=== PATIENT | male | born 1985 | race Caucasian/White ===

== ENCOUNTER 2017-03-12 06:25 | Emergency (ER) | payer MEDICAID ==
[2017-03-12] MEDS ORDERED: ASPIRIN 81 MG TABLET, CHEWABLE PO ONE (07:15)
--- NOTE | 2017-03-12 07:16 | ER Document Report ---
ED General - General Chief Complaint: Jaw Pain Stated Complaint: SWOLLEN AND PAINFUL JAW Mode of Arrival: Ambulatory Information source: Patient Notes: Patient presents complaining of left lower jaw pain due to a broken tooth caused by an incoming molar. Patient states the pain has been making him anxious which in turn caused him to develop some chest pain this morning at 5 AM that lasted for 1 hour and is now resolved. Patient denies any nausea or vomiting. Patient reports mild cough that he attributes to his chronic cough due to smoking. Patient denies any drug use or family history or personal history of heart disease. TRAVEL OUTSIDE OF THE [place] IN LAST 30 DAYS: No - HPI Onset: Other - Dental pain since yesterday, chest pain episode this morning at 5 AM Onset/Duration: Persistent - Dental pain Quality of pain: Achy Pain Level: 4 Associated symptoms: Chest pain, Nonproductive cough. denies: Productive cough , Diarrhea, Fever, Nausea, Vomiting, Sore throat Exacerbated by: Denies Relieved by: Denies Similar symptoms previously: Yes Recently seen / treated by doctor: No - Related Data Allergies/Adverse Reactions: No Known Allergies Allergy (Verified 05/04/15 21:03) Past Medical History - General Information source: Patient - Social History Smoking Status: Current Every Day Smoker Frequency of alcohol use: None Drug Abuse: None Occupation: music Family History: Reviewed & Not Pertinent. denies: CAD Patient has suicidal ideation: No Patient has homicidal ideation: No - Past Medical History Cardiac Medical History: Denies: Hx Heart Attack, Hx Hypertension Renal/ Medical History: Denies: Hx Peritoneal Dialysis GI Medical History: Reports: Hx Gastroesophageal Reflux Disease Psychiatric Medical History: Reports: Hx Bipolar Disorder Surgical Hx: Negative - Immunizations Hx Diphtheria, Pertussis, Tetanus Vaccination: No Review of Systems - Review of Systems Constitutional: No symptoms reported. denies: Fever, Recent illness EENT: Other - Dental pain Cardiovascular: Chest pain - 1 hour episode of chest pain that started at 5 AM. denies: Palpitations Respiratory: Cough. denies: Short of breath Gastrointestinal: No symptoms reported. denies: Abdominal pain, Diarrhea, Nausea, Vomiting Genitourinary: No symptoms reported Male Genitourinary: No symptoms reported Musculoskeletal: No symptoms reported. denies: Back pain Skin: No symptoms reported Hematologic/Lymphatic: No symptoms reported Neurological/Psychological: Anxiety Physical Exam - Vital signs Vitals: Temp Pulse Resp BP Pulse Ox 97.6 F 98 19 152/92 H 99 03/12/17 06:37 03/12/17 06:37 03/12/17 06:37 03/12/17 06:37 03/12/17 06:37 - General General appearance: Appears well, Alert In distress: None Notes: PHYSICAL EXAMINATION: GENERAL: Well-appearing and in no acute distress. HEAD: Atraumatic, normocephalic. EYES: sclera anicteric, conjunctiva are normal. ENT: nares patent. Moist mucous membranes. NECK: Normal range of motion, supple without lymphadenopathy LUNGS: CTAB and equal. No wheezes rales or rhonchi. Chest nontender to palpation HEART: Regular rate and rhythm without murmurs ABDOMEN: Soft, nontender, normal bowel sounds, no guarding. EXTREMITIES: Normal range of motion, no pitting edema. No cyanosis. BACK: No CVA tenderness NEUROLOGICAL: Cranial nerves grossly intact. Normal speech. Normal gait. PSYCH: Normal mood, normal affect. SKIN: Warm, Dry, normal turgor, no rashes or lesions noted Course - Re-evaluation Re-evalutation: 03/12/17 09:17 Patient continues to deny any chest pain symptoms this time. Consulted with Dr. Underwood regarding patient presentation and diagnostic evaluation. No additional testing advised this time. 03/12/17 09:19 The patient has atypical chest pain as the patient's chest pain is not suggestive of pulmonary embolus, cardiac ischemia, aortic dissection, or other serious etiology. Given the extremely low risk of these diagnoses for the test in evaluation for these possibilities does not appear to be indicated at this time. Patient has been instructed to return if the symptoms worsen or change in any way. Patient with heart score of 1. Pt PERC negative - Vital Signs Vital signs: Temp Pulse Resp BP Pulse Ox 97.6 F 84 16 146/98 H 99 03/12/17 09:24 03/12/17 09:24 03/12/17 09:24 03/12/17 09:24 03/12/17 09:24 - Laboratory Result Diagrams: 03/12/17 07:29 03/12/17 07:29 Laboratory results interpreted by me: 03/12/17 03/12/17 07:29 07:29 WBC 10.8 H Chloride 108 H - Diagnostic Test Radiology reviewed: Reports reviewed - EKG Interpretation by Me EKG shows normal: Sinus rhythm Rate: Normal When compared to previous EKG there are: No significant change Discharge - Discharge Clinical Impression: Toothache, Elevated blood pressure reading Chest pain Qualifiers: Chest pain type: unspecified Qualified Code(s): R07.9 - Chest pain, unspecified Condition: Stable Disposition: HOME, SELF-CARE Instructions: Toothache (OM), Penicillin V K (OM), Chest Pain of Unclear Cause (OM) Additional Instructions: Return immediately for any new or worsening symptoms Followup with your primary care provider, call tomorrow to make a followup appointment. Your blood pressure was elevated today, a primary doctor can recheck this in 1-2 days Follow up with a emergency response officer for an outpatient for further evaluation Follow-up with your dental care provider as planned Prescriptions: Naproxen [Naprosyn 250 Nmg Tablet] 1 tab PO BID #14 tablet Penicillin V Potassium [Penicillin Vk 500 mg Tablet] 500 mg PO BID #20 tablet Forms: Elevated Blood Pressure Referrals: [facility] [Provider Group] - Follow up as needed CATARINA PIERSON MD [ACTIVE STAFF] - Follow up in 3-5 days [facility] [Provider Group] - Follow up tomorrow
[2017-03-12 07:43] LABS: ABSOLUTE BASOPHILS # (AUTO) 0.1 10^3/uL (0.0-0.2); ABSOLUTE EOSINOPHILS # (AUTO) 0.3 10^3/uL (0.0-0.6); ABSOLUTE LYMPHOCYTES (AUTO) 3.1 10^3/uL (0.5-4.7); ABSOLUTE MONOCYTES (AUTO) 0.8 10^3/uL (0.1-1.4); ABSOLUTE NEUT (AUTO) 6.5 10^3/uL (1.7-8.2); BASOPHILS % (AUTO) 0.7 % (0-2); HEMATOCRIT 44.9 % (37.9-51.0); HEMOGLOBIN 15.8 g/dL (13.5-17.0); HGB HCT DIFFERENCE 2.5; LYMPHOCYTES % (AUTO) 28.6 % (13-45); MEAN CORPUSCULAR HEMOGLOBIN 30.3 pg (27.0-33.4); MEAN CORPUSCULAR HGB CONC 35.1 g/dL (32.0-36.0); MEAN CORPUSCULAR VOLUME 87 fl (80-97); MONOCYTES % (AUTO) 7.2 % (3-13); RED BLOOD COUNT 5.19 10^6/uL (4.35-5.55); RED CELL DISTRIBUTION WIDTH 12.7 % (11.5-14.0); SEGMENTED NEUTROPHILS % (AUTO) 60.5 % (42-78); WHITE BLOOD COUNT 10.8 10^3/uL (4.0-10.5)
[2017-03-12 07:56] LABS: ALANINE AMINOTRANSFERASE 49 U/L (21-72); ALBUMIN 4.3 g/dL (3.5-5.0); ALKALINE PHOSPHATASE 92 U/L (38-126); ANION GAP 13 (5-19); ASPARTATE AMINO TRANSFERASE 25 U/L (17-59); BILIRUBIN,DIRECT 0.3 mg/dL (0.0-0.4); BILIRUBIN,TOTAL 0.6 mg/dL (0.2-1.3); BLOOD UREA NITROGEN 14 mg/dL (7-20); CALCIUM 9.5 mg/dL (8.4-10.2); CARBON DIOXIDE 23 mmol/L (22-30); CHLORIDE 108 mmol/L (98-107); CREATINE KINASE 96 U/L (55-170); CREATININE RESULT 0.66 mg/dL (0.52-1.25); GLUCOSE 105 mg/dL (75-110); LIPASE 74.5 U/L (23-300); POTASSIUM 4.1 mmol/L (3.6-5.0); SODIUM 143.6 mmol/L (137-145)
[2017-03-12 08:08] LABS: CREATINE KINASE MB 0.41 ng/mL (<4.55)
[2017-03-12 08:17] LABS: TROPONIN I < 0.012 ng/mL
--- NOTE | 2017-03-12 09:06 | EKG REPORT ---
SEVERITY:- NORMAL ECG - SINUS RHYTHM : Confirmed by: Miller Mosqueda MD 12-Mar-2017 09:05:47
[2017-03-12 09:27] VITALS: BP 146/98
== END 2017-03-12 09:27 | disposition home or self-care (01) ==
LOC: ER 06:25
DX: K00.6 Disturbances in tooth eruption (principal); F41.9 Anxiety disorder, unspecified; R07.89 Other chest pain; R03.0 Elevated blood-pressure reading, without diagnosis of hypertension; J41.0 Simple chronic bronchitis; F17.200 Nicotine dependence, unspecified, uncomplicated
CPT/HCPCS: 36415; 71020; 80053; 82550; 82553; 83690; 84484; 85025; 93005; 93010; 99285

== ENCOUNTER 2017-05-14 01:24 | Emergency (ER) | payer MEDICAID ==
[2017-05-14 01:32] VITALS: BP 161/96
--- NOTE | 2017-05-14 12:58 | EKG REPORT ---
SEVERITY:- OTHERWISE NORMAL ECG - SINUS TACHYCARDIA : Confirmed by: Alem Lynn MD 14-May-2017 12:55:58
== END 2017-05-14 04:28 | disposition left against medical advice (07) ==
LOC: ER 01:24
DX: Z53.21 Procedure and treatment not carried out due to patient leaving prior to being seen by health care provider (principal)
CPT/HCPCS: 93005; 93010

== ENCOUNTER 2017-10-25 21:20 | Emergency (ER) | payer MEDICAID ==
[2017-10-25] MEDS ORDERED: NORMAL SALINE 1000 ML 1,000 ML IV PRN (22:38)
--- NOTE | 2017-10-25 23:10 | RADIOLOGY REPORT (SQ) ---
EXAM DESCRIPTION: CHEST SINGLE VIEW COMPLETED DATE/TIME: 10/25/2017 10:45 pm REASON FOR STUDY: er 19, palpiations COMPARISON: 03/12/2017 EXAM PARAMETERS: NUMBER OF VIEWS: One view. TECHNIQUE: Single frontal radiographic view of the chest acquired. RADIATION DOSE: NA LIMITATIONS: None. FINDINGS: LUNGS AND PLEURA: No opacities, masses or pneumothorax. No pleural effusion. MEDIASTINUM AND HILAR STRUCTURES: No masses. Contour normal. HEART AND VASCULAR STRUCTURES: Heart normal in size. Normal vasculature. BONES: No acute findings. HARDWARE: None in the chest. OTHER: No other significant finding. IMPRESSION: NO ACUTE RADIOGRAPHIC FINDING IN THE CHEST. TECHNICAL DOCUMENTATION: JOB ID: [id number] [place]-72 2010 [employer] [place]- All Rights Reserved
[2017-10-25 23:22] LABS: APPEARANCE,URINE CLEAR; BILIRUBIN,URINE NEGATIVE (NEGATIVE); GLUCOSE, URINE NEGATIVE (NEGATIVE); KETONES,URINE NEGATIVE (NEGATIVE); LEUKOCYTE ESTERASE,URINE NEGATIVE (NEGATIVE); NITRITE,URINE NEGATIVE (NEGATIVE); PROTEIN,URINE NEGATIVE (NEGATIVE); URINE SPECIFIC GRAVITY 1.003; UROBILINOGEN,URINE NEGATIVE mg/dL (<2.0)
[2017-10-25 23:39] LABS: ALANINE AMINOTRANSFERASE 66 U/L (21-72); ALBUMIN 5.3 g/dL (3.5-5.0); ALKALINE PHOSPHATASE 119 U/L (38-126); ANION GAP 16 (5-19); ASPARTATE AMINO TRANSFERASE 29 U/L (17-59); BILIRUBIN,DIRECT 0.5 mg/dL (0.0-0.4); BILIRUBIN,TOTAL 0.5 mg/dL (0.2-1.3); BLOOD UREA NITROGEN 7 mg/dL (7-20); CALCIUM 10.1 mg/dL (8.4-10.2); CARBON DIOXIDE 29 mmol/L (22-30); CHLORIDE 100 mmol/L (98-107); CREATINE KINASE 123 U/L (55-170); CREATININE RESULT 0.71 mg/dL (0.52-1.25); GLUCOSE 94 mg/dL (75-110); POTASSIUM 4.3 mmol/L (3.6-5.0); SODIUM 144.7 mmol/L (137-145); TOTAL PROTEIN 8.5 g/dL (6.3-8.2)
[2017-10-25 23:46] LABS: ABSOLUTE BASOPHILS # (AUTO) 0.1 10^3/uL (0.0-0.2); ABSOLUTE EOSINOPHILS # (AUTO) 0.2 10^3/uL (0.0-0.6); ABSOLUTE MONOCYTES (AUTO) 0.6 10^3/uL (0.1-1.4); ABSOLUTE NEUT (AUTO) 7.5 10^3/uL (1.7-8.2); BASOPHILS % (AUTO) 0.6 % (0-2); EOSINOPHILS % (AUTO) 1.7 % (0-6); HEMATOCRIT 51.3 % (37.9-51.0); HEMOGLOBIN 17.8 g/dL (13.5-17.0); HGB HCT DIFFERENCE 2.1; LYMPHOCYTES % (AUTO) 26.5 % (13-45); MEAN CORPUSCULAR HGB CONC 34.8 g/dL (32.0-36.0); MEAN CORPUSCULAR VOLUME 86 fl (80-97); MONOCYTES % (AUTO) 5.5 % (3-13); RED BLOOD COUNT 5.94 10^6/uL (4.35-5.55); RED CELL DISTRIBUTION WIDTH 12.8 % (11.5-14.0); SEGMENTED NEUTROPHILS % (AUTO) 65.7 % (42-78); WHITE BLOOD COUNT 11.4 10^3/uL (4.0-10.5)
--- NOTE | 2017-10-26 00:07 | ER Document Report ---
ED General - General Chief Complaint: Palpitations Stated Complaint: HEART RACING Time Seen by Provider: 10/25/17 23:12 Notes: Patient is a 31-year-old male without past medical history, current every day tobacco abuser who presents with an episode of palpitations that started just prior to arrival. Patient states that he was out in his garage smoking a cigarette when he began to cough on the smell the cigarette smoke. States that he went inside because he could feel his heart racing quickly and when he checked the number it was stating that his heart rate was at 130. Patient states that this did trigger him to have a panic attack in which he began to hyperventilate, became diaphoretic, and felt extremely anxious. He does have a history of having a panic attack in the past and states this felt very similar. He states he got into his car and drove here to the emergency department. Patient does note that his symptoms have now resolved particularly after IV fluids were initiated. He denies any history of DVT or pulmonary embolus. No cardiac history. He denies any chest pain or shortness of breath during today' s episode. TRAVEL OUTSIDE OF THE [place] IN LAST 30 DAYS: No - Related Data Allergies/Adverse Reactions: No Known Allergies Allergy (Verified 05/04/15 21:03) Home Medications: Current Home Medications No Home Medications 10/25/17 [History] Past Medical History - General Information source: Patient - Social History Smoking Status: Current Every Day Smoker Frequency of alcohol use: Social Drug Abuse: None Lives with: Spouse/Significant other Family History: Reviewed & Not Pertinent. denies: CAD Patient has suicidal ideation: No Patient has homicidal ideation: No - Past Medical History Cardiac Medical History: Denies: Hx Heart Attack, Hx Hypertension Renal/ Medical History: Denies: Hx Peritoneal Dialysis GI Medical History: Reports: Hx Gastroesophageal Reflux Disease Psychiatric Medical History: Reports: Hx Bipolar Disorder - Immunizations Hx Diphtheria, Pertussis, Tetanus Vaccination: No Review of Systems - Review of Systems Notes: Constitutional: Negative for fever. HENT: Negative for sore throat. Eyes: Negative for visual changes. Cardiovascular: Negative for chest pain. Positive for palpitations Respiratory: Negative for shortness of breath. Gastrointestinal: Negative for abdominal pain, vomiting or diarrhea. Genitourinary: Negative for dysuria. Musculoskeletal: Negative for back pain. Skin: Negative for rash. Neurological: Negative for headaches, weakness or numbness. 10 point ROS negative except as marked above and in HPI. Physical Exam - Vital signs Vitals: Temp Pulse Resp BP Pulse Ox 97.9 F 132 H 20 177/99 H 99 10/25/17 21:24 10/25/17 21:24 10/25/17 21:24 10/25/17 21:24 10/25/17 21:24 Interpretation: Tachycardic Notes: PHYSICAL EXAMINATION: GENERAL: Well-appearing, well-nourished and in no acute distress. HEAD: Atraumatic, normocephalic. EYES: Pupils equal round and reactive to light, extraocular movements intact, sclera anicteric, conjunctiva are normal. ENT: nares patent, oropharynx clear without exudates. Moderately dry mucous membranes. NECK: Normal range of motion, supple without lymphadenopathy LUNGS: Breath sounds clear to auscultation bilaterally and equal. No wheezes rales or rhonchi. HEART: Regular rate and rhythm without murmurs ABDOMEN: Soft, nontender, normoactive bowel sounds. No guarding, no rebound. No masses appreciated. EXTREMITIES: Normal range of motion, no pitting or edema. No cyanosis. NEUROLOGICAL: No focal neurological deficits. Moves all extremities spontaneously and on command. PSYCH: Normal mood, normal affect. SKIN: Warm, Dry, normal turgor, no rashes or lesions noted. Course - Re-evaluation Re-evalutation: 10/26/17 00:04 Patient presents with palpitations but is in no acute distress. Patient did have a pronounced tachycardia at time of arrival which is improved with IV fluids. EKG unremarkable with a sinus tachycardia. Laboratories are unremarkable. Patient denies any chest pain, shortness of breath, or vomiting. At this time based on exam and history do not suspect a new onset arrhythmia, ACS, acute pulmonary embolus, aortic dissection. Patient does admit to feeling as though he had a panic attack at home and does admit to very minimal fluid intake today throughout the day. He notes he feels completely improved at this time. He denies any shortness of breath, pleuritic pain, or any symptoms that would suggest an acute pulmonary embolus. At time of my assessment his heart rate has trended down to 92. Labs were initiated in triage including cardiac markers but I do not believe cardiac markers were indicated given patient's clinical history. Chest x-ray obtained and is noted to be clear. At this time will discharge with return precautions and follow-up recommendations. Verbal discharge instructions given a the bedside and opportunity for questions given. Medication warnings reviewed. Patient is in agreement with this plan and has verbalized understanding of return precautions and the need for primary care follow-up in the next 24-72 hours. - Vital Signs Vital signs: Temp Pulse Resp BP Pulse Ox 97.9 F 132 H 17 144/86 H 100 10/25/17 21:24 10/25/17 21:24 10/26/17 00:00 10/26/17 00:58 10/26/17 00:58 - Laboratory Result Diagrams: 10/25/17 23:07 10/25/17 23:07 Laboratory results interpreted by me: 10/25/17 10/25/17 23:07 23:07 WBC 11.4 H RBC 5.94 H Hgb 17.8 H Hct 51.3 H Direct Bilirubin 0.5 H Total Protein 8.5 H Albumin 5.3 H - Diagnostic Test Radiology reviewed: Image reviewed, Reports reviewed Radiology results interpreted by me: 10/26/17 00:05 Chest x-ray: No acute infiltrate or pneumothorax - EKG Interpretation by Me Additional EKG results interpreted by me: 10/26/17 00:06 Sinus tachycardia. Rate 117. No ST elevations or depressions. QTC is 447. Discharge - Discharge Clinical Impression: Palpitations, Dehydration, Panic attack Condition: Good Disposition: HOME, SELF-CARE Additional Instructions: You were seen today for a fast heart rate likely a combination of dehydration and a panic attack. Return if you develop chest pain, shortness of breath, pass out, or have any other symptoms that are worrisome to you.
[2017-10-26 01:01] VITALS: BP 144/86
--- NOTE | 2017-10-26 07:50 | EKG REPORT ---
SEVERITY:- BORDERLINE ECG - SINUS TACHYCARDIA BORDERLINE INFERIOR Q WAVES : Confirmed by: Miller Mosqueda MD 26-Oct-2017 07:49:54
== END 2017-10-26 01:01 | disposition home or self-care (01) ==
LOC: ER 21:20
DX: F41.0 Panic disorder [episodic paroxysmal anxiety] (principal); R00.2 Palpitations; E86.0 Dehydration; R00.0 Tachycardia, unspecified; F17.210 Nicotine dependence, cigarettes, uncomplicated
CPT/HCPCS: 93005; 99285; 36415; 82553; 82550; 85025; 80053; 81001; 84484; 71010; 93010; J7030

== ENCOUNTER 2018-06-28 21:41 | Emergency (ER) | payer MEDICAID ==
[2018-06-28] MEDS ORDERED: ASPIRIN 81 MG TABLET, CHEWABLE PO ONE (21:57)
[2018-06-28] MEDS ORDERED: NORMAL SALINE 1000 ML 1,000 ML IV ONE ×2 (21:57→23:41)
[2018-06-28] MEDS ORDERED: ADENOSINE INJ/PF 6 MG/2 ML SDV IV ONE ×3 (22:00→22:13)
--- NOTE | 2018-06-28 22:01 | ER Document Report ---
ED Cardiac - General Information source: Patient TRAVEL OUTSIDE OF THE [place] IN LAST 30 DAYS: No <CALLIE FREEMAN - Last Filed: 06/28/18 22:51> <MARILEE HUYNH - Last Filed: 06/29/18 02:38> - General Chief Complaint: Palpitations Stated Complaint: HEART RACING,CHEST PAIN Time Seen by Provider: 06/28/18 21:54 Notes: 32 y.o male presents to the ED with heart palpitations of onset around 45 minutes ago. Pt reports that he has had his heart racing once before but that it was not this bad. Pt reports that he was recently diagnosed with HTN but denies starting his medications yet. He denies any other known medical issues. (CALLIE FREEMAN) - Related Data Allergies/Adverse Reactions: No Known Allergies Allergy (Verified 05/04/15 21:03) Past Medical History - General Information source: Patient - Social History Smoking Status: Current Every Day Smoker Smoking Education Provided: Yes Drug Abuse: None Family History: Reviewed & Not Pertinent - Past Medical History Cardiac Medical History: Reports: Hx Hypertension Renal/ Medical History: Denies: Hx Peritoneal Dialysis GI Medical History: Reports: Hx Gastroesophageal Reflux Disease Psychiatric Medical History: Reports: Hx Bipolar Disorder - Immunizations Hx Diphtheria, Pertussis, Tetanus Vaccination: No <CALLIE FREEMAN - Last Filed: 06/28/18 22:51> Review of Systems - Review of Systems Constitutional: No symptoms reported EENT: No symptoms reported Cardiovascular: See HPI, Palpitations Respiratory: No symptoms reported Gastrointestinal: No symptoms reported Genitourinary: No symptoms reported Male Genitourinary: No symptoms reported Musculoskeletal: No symptoms reported Skin: No symptoms reported Hematologic/Lymphatic: No symptoms reported Neurological/Psychological: No symptoms reported -: Yes All other systems reviewed and negative <CALLIE FREEMAN - Last Filed: 06/28/18 22:51> Physical Exam <CALLIE FREEMAN - Last Filed: 06/28/18 22:51> <MARILEE HUYNH - Last Filed: 06/29/18 02:38> - Notes Notes: Physical Exam: General: Alert, anxious. HEENT: Normocephalic. Atraumatic. PERRL. Extraocular movements intact. Oropharynx clear. Dry mucus membranes. Neck: Supple. Non-tender. Respiratory: No respiratory distress. Clear and equal breath sounds bilaterally. Cardiovascular: Tachycardic rate and regular rhythm. Abdominal: Normal Inspection. Non-tender. No distension. Normal Bowel Sounds. Back: Non-tender. No deformity or step off. Extremities: Moves all four extremities. Upper extremities: Normal inspection. Normal ROM. Lower extremities: Normal inspection. No edema. Normal ROM. Neurological: Normal cognition. AAOx3. Normal speech. Psychological: anxious. Skin: Warm. Dry. Normal color. (CALLIE FREEMAN) Course <CALLIE FREEMAN - Last Filed: 06/28/18 22:51> - Laboratory Result Diagrams: 06/28/18 22:35 06/28/18 22:35 <MARILEE HUYNH - Last Filed: 06/29/18 02:38> - Re-evaluation Re-evalutation: 06/29/18 02:37 Patient is a 32-year-old male who comes in with tachycardia and ultimately SVT. Patient was given 6 mg of adenosine which did not work at all. 12 mg of adenosine slowed his heart rate down briefly. Patient was given a dose of Cardizem as well as fluids. Patient informs me that he drinks 12 Mountain Dew today. He has been told to stop that. Patient also smokes which he states he is quitting tonight after this experience. Patient has not required any further intervention after 15 mg of Cardizem. He does not want to be on medications at home. He is strongly encouraged to follow-up with a primary care doctor and return if he has any return or worsening of his symptoms. Patient was mildly hypokalemic and that has been replaced. Repeat EKG showing a sinus rhythm at 79. Stable for discharge. Understands agrees this plan. (MARILEE HUYNH) - Laboratory Laboratory results interpreted by me: 06/28/18 06/28/18 22:35 22:35 WBC 15.1 H Absolute Neutrophils 8.3 H Absolute Lymphocytes 5.5 H Potassium 3.4 L Glucose 125 H Critical Care Note - Critical Care Note Total time excluding time spent on procedures (mins): 60 - Evaluation and management of tachycardia, SVT, multiple re-evaluations, counseling of patient and family <MARILEE HUYNH - Last Filed: 06/29/18 02:38> Discharge <CALLIE FREEMAN - Last Filed: 06/28/18 22:51> <MARILEE HUYNH - Last Filed: 06/29/18 02:38> - Discharge Clinical Impression: SVT (supraventricular tachycardia), Hypokalemia, Dehydration Condition: Stable Disposition: HOME, SELF-CARE Instructions: Family Physicians / Practices, Hypokalemia ([facility]), Paroxysmal Supraventricular Tachycardia ([facility]) Additional Instructions: Please decrease your caffeine intake and please try to stay hydrated with non- caffeinated beverages. Scribe Attestation: 06/29/18 02:38 I personally performed the services described in the documentation, reviewed and edited the documentation which was dictated to the scribe in my presence, and it accurately records my words and actions. (MARILEE HUYNH) Scribe Documentation - Scribe Written by Stiven:: Stiven Mckinley 06/28/181 acting as scribe for :: Den <CALLIE FREEMAN - Last Filed: 06/28/18 22:51>
[2018-06-28] MEDS ORDERED: PROCAINAMIDE HCL ONE (22:13)
[2018-06-28] MEDS ORDERED: PROCAINAMIDE HCL IV ONE (22:15)
[2018-06-28] MEDS ORDERED: DILTIAZEM HCL INJ 25 MG/5 ML VIAL ONE (22:18)
[2018-06-28] MEDS ORDERED: DILTIAZEM HCL INJ 25 MG/5 ML VIAL IV ONE (22:18)
--- NOTE | 2018-06-28 22:30 | EKG REPORT ---
SEVERITY:- BORDERLINE ECG - SINUS TACHYCARDIA BORDERLINE INFERIOR Q WAVES : Confirmed by: Mamadou Langley 28-Jun-2018 22:29:50
[2018-06-28] MEDS ORDERED: LORAZEPAM INJ 2 MG/1 ML VIAL IV ONE (22:48)
[2018-06-28 23:14] LABS: ABSOLUTE BASOPHILS # (AUTO) 0.1 10^3/uL (0.0-0.2); ABSOLUTE EOSINOPHILS # (AUTO) 0.3 10^3/uL (0.0-0.6); ABSOLUTE LYMPHOCYTES (AUTO) 5.5 10^3/uL (0.5-4.7); ABSOLUTE MONOCYTES (AUTO) 0.8 10^3/uL (0.1-1.4); ABSOLUTE NEUT (AUTO) 8.3 10^3/uL (1.7-8.2); BASOPHILS % (AUTO) 0.7 % (0-2); HEMATOCRIT 46.5 % (37.9-51.0); HEMOGLOBIN 16.2 g/dL (13.5-17.0); LYMPHOCYTES % (AUTO) 36.7 % (13-45); MEAN CORPUSCULAR HEMOGLOBIN 30.5 pg (27.0-33.4); MEAN CORPUSCULAR HGB CONC 34.8 g/dL (32.0-36.0); MEAN CORPUSCULAR VOLUME 88 fl (80-97); MONOCYTES % (AUTO) 5.3 % (3-13); PLATELET COUNT 361 10^3/uL (150-450); RED CELL DISTRIBUTION WIDTH 12.9 % (11.5-14.0); SEGMENTED NEUTROPHILS % (AUTO) 55.3 % (42-78); TOTAL CELLS COUNTED % (AUTO) 100 %; WHITE BLOOD COUNT 15.1 10^3/uL (4.0-10.5)
[2018-06-28 23:22] LABS: PROTHROMBIN TIME 12.7 SEC (11.4-15.4)
--- NOTE | 2018-06-28 23:34 | RADIOLOGY REPORT (SQ) ---
EXAM DESCRIPTION: XR CHEST 1 VIEW COMPLETED DATE/TME: 06/28/2018 21:57 CLINICAL HISTORY: 32 years, Male, CP COMPARISON: 03/12/2017 two view chest. NUMBER OF VIEWS: One TECHNIQUE: Single AP view chest was performed portably. LIMITATIONS: None. FINDINGS: Cardiac mediastinal silhouette within normal limits. Heart size normal. The lungs are clear without focal opacity, pleural effusion or pneumothorax. The visualized bones are within normal limits. IMPRESSION: No acute cardiopulmonary abnormalities. 2010 [employer]- All Rights Reserved
[2018-06-28 23:45] LABS: CREATINE KINASE MB 0.61 ng/mL (<4.55)
[2018-06-28 23:47] LABS: TROPONIN I < 0.012 ng/mL
[2018-06-29 00:02] LABS: ALANINE AMINOTRANSFERASE 58 U/L (21-72); ALBUMIN 4.7 g/dL (3.5-5.0); ALKALINE PHOSPHATASE 105 U/L (38-126); ANION GAP 16 (5-19); ASPARTATE AMINO TRANSFERASE 43 U/L (17-59); BILIRUBIN,DIRECT 0.3 mg/dL (0.0-0.4); BILIRUBIN,TOTAL 0.5 mg/dL (0.2-1.3); BLOOD UREA NITROGEN 9 mg/dL (7-20); CALCIUM 9.2 mg/dL (8.4-10.2); CARBON DIOXIDE 23 mmol/L (22-30); CHLORIDE 102 mmol/L (98-107); CREATINE KINASE 101 U/L (55-170); GLUCOSE 125 mg/dL (75-110); POTASSIUM 3.4 mmol/L (3.6-5.0); SODIUM 141.1 mmol/L (137-145)
[2018-06-29 01:12] LABS: APPEARANCE,URINE CLEAR; BILIRUBIN,URINE NEGATIVE (NEGATIVE); COLOR,URINE STRAW; GLUCOSE, URINE NEGATIVE (NEGATIVE); KETONES,URINE NEGATIVE (NEGATIVE); LEUKOCYTE ESTERASE,URINE NEGATIVE (NEGATIVE); NITRITE,URINE NEGATIVE (NEGATIVE); PROTEIN,URINE NEGATIVE (NEGATIVE); URINE SPECIFIC GRAVITY 1.006; UROBILINOGEN,URINE NEGATIVE mg/dL (<2.0)
[2018-06-29] MEDS ORDERED: POTASSIUM CHLORIDE 10 MEQ CAPSULE.ER PO ONE (01:18)
[2018-06-29 01:25] LABS: URINE AMPHETAMINES SCREEN NEGATIVE; URINE BARBITURATES SCREEN NEGATIVE; URINE BENZODIAZEPINES SCREEN NEGATIVE; URINE COCAINE SCREEN NEGATIVE; URINE MARIJUANA (THC) SCREEN NEGATIVE; URINE METHADONE SCREEN NEGATIVE; URINE PHENCYCLIDINE SCREEN NEGATIVE
[2018-06-29 02:49] VITALS: BP 124/89
--- NOTE | 2018-06-29 18:17 | EKG REPORT ---
SEVERITY:- NORMAL ECG - SINUS RHYTHM : Confirmed by: Mamadou Langley 29-Jun-2018 18:16:25
== END 2018-06-29 02:55 | disposition home or self-care (01) ==
LOC: ER 21:41
DX: I47.1 Supraventricular tachycardia (principal); E87.6 Hypokalemia; E86.0 Dehydration; I10 Essential (primary) hypertension; F17.200 Nicotine dependence, unspecified, uncomplicated
CPT/HCPCS: 93005; 99291; 96360; 36415; 82553; 82550; 85025; 85610; 80053; 81001; 84484; 80307; 71045; 93010; J7030